=== PATIENT | male | born 1995 | race Caucasian/White ===

== ENCOUNTER 2018-06-13 23:50 | Emergency (ER) | END 2018-06-14 01:59 | disposition home or self-care (01) ==

== ENCOUNTER 2018-09-17 12:30 | Emergency (ER) | payer MEDICAID ==
[~2018-09-17] VITALS: Ht 170.2 cm; Wt 69.9 kg
[2018-09-17 12:44] VITALS: BP 123/80; PULSE 82; RESP 20; Ht 170.2 cm; Wt 69.9 kg
[2018-09-17] MEDS ORDERED: ONDANSETRON (ODT) 4 MG TAB ODT STA (15:42)
[2018-09-17] MEDS ORDERED: LIDOCAINE/MYLANTA 40 ML BTL PO ONE (16:00)
[2018-09-17] MEDS ORDERED: ONDA4TAB14 PO (16:42)
[2018-09-17] MEDS ORDERED: RANI150T35 PO (16:42)
--- NOTE | 2018-09-17 16:52 | ERD ---
ER Documentation Chief Complaint Chief Complaint N/V S/P EATING [id number] HPI 23-year-old male patient with no significant past medical history presents to ED complaining of nausea, vomiting after eating has been going on for the last few months, feels like it has worsened in the last month. States that he feels a bu rning sensation in his chest. She reports that he has had a few episodes of nonbilious nonbloody vomiting after he eats. Reports that he has not followed up with his doctor, as well as a plunket nurse. Reports that sometimes he has upper abdominal pain, reports that that has resolved. Denies any chest pain, shortness of breath, diarrhea, neck stiffness, dyspnea on exertion. ROS All systems reviewed and are negative except as per history of present illness. Medications Home Meds Active Scripts Ondansetron (Ondansetron Odt) 4 Mg Tab.rapdis, 4 MG PO Q6H PRN for NAUSEA AND/OR VOMITING, #10 TAB Prov:NISHANT RENDON PA-C 09/17/18 Ranitidine Hcl* (Zantac*) 150 Mg Tablet, 150 MG PO BID PRN for EPIGASTRIC PAIN, #30 TAB Prov:NISHANT RENDON PA-C 09/17/18 Allergies Allergies: Coded Allergies: No Known Allergy (Unverified , 09/17/18) PMhx/Soc Medical and Surgical Hx: pt denies Medical Hx, pt denies Surgical Hx Hx Alcohol Use: No Hx Substance Use: No Hx Tobacco Use: No Smoking Status: Never smoker FmHx Family History: No diabetes, No coronary disease Physical Exam Vitals Vital Signs Date Temp Pulse Resp B/P (MAP) Pulse Ox O2 O2 Flow FiO2 Time Delivery Rate 09/17/18 98.3 82 20 123/80 98 12:44 (94) Physical Exam Const: Tda-[id number]-[id number], well-nourished. In no acute distress. Head: Atraumatic, normocephalic Eyes: Normal Conjunctiva without injection. No purulent discharge. ENT: Normal external ear, nose. Moist oropharynx without tonsillar exudates. Non-erythematous pharynx. Uvula midline. No drooling. No trismus. Neck: No cervical midline tenderness. Full range of motion. No meningismus. No cervical lymphadenopathy. No JVD. Resp: Clear to auscultation bilaterally. No wheezing, rhonchi, rales, or crackles. No accessory muscle use. No retractions. Cardio: Regular rate and rhythm. No murmurs, rubs or gallops. Abd: Soft, nontender, non distended. Normal bowel sounds. No palpable masses. No rebound tenderness. No guarding. Negative McBurney's point. Negative psoas sign. Negative obturator sign. Skin: No petechiae or rashes Back: No midline tenderness. No CVA tenderness. Ext: No cyanosis, or edema. Neur: Awake and alert. Normal gait. Normal coordination. Psych: Normal Mood and Affect Results 24 hrs Current Medications Medications Dose Sig/Bekah Start Time Status Last (Trade) Ordered Route PRN Stop Time Admin Dose Reason Admin Ondansetron 4 mg ONCE STAT 09/17/18 DC 09/17/18 HCl (Zofran ODT 15:42 15:49 Odt) 09/17/18 15:43 40 ml ONCE ONCE 09/17/18 DC 09/17/18 Miscellaneous PO 16:00 15:49 Medication 09/17/18 16:01 (Gi Cocktail (2)) Procedures/MDM 23-year-old male patient with no significant past medical history presents to ED complaining of nausea, vomiting after eating since 1 month ago. Patient is afebrile and nontoxic-appearing. Patient reports that he currently does not have any abdominal pain. Patient was treated here in the ED with GI cocktail, Zofran and improved his pain. Patient had a successful p.o. challenge. Differentials include gastritis, GERD. Low suspicion for testicular torsion, cholecystitis, choledocholithiasis, cholangitis, pancreatitis, appendicitis, bowel obstruction, ileus, volvulus, nephrolithiasis, pyelonephritis, hepatitis, perforated viscus, diverticulitis, abdominal hernia, acute abdomen, mesenteric ischemia or other emergent conditions. Diagnosis: Nausea, Vomiting, Burning sensation of throat Discharge medications: Zofran, Zantac Follow up with primary care physician in 1-2 days for referral to see plunket nurse for endoscopy.. Instructed patient to return to the ED sooner for any worsening symptoms. Patient's questions were answered. Patient is hemodynamically stable. Patient understood and agreed with discharge plan. Patient discharged stable. Disclaimer: Inadvertent spelling and grammatical errors are likely due to EHR/dictation software use and do not reflect on the overall quality of patient care. Also, please note that the electronic time recorded on this note does not necessarily reflect the actual time of the patient encounter. Departure Diagnosis: Primary Impression: Nausea and vomiting Vomiting type: unspecified Vomiting Intractability: unspecified Qualified Codes: R11.2 - Nausea with vomiting, unspecified Additional Impression: Burning sensation of throat Condition: Stable Patient Instructions: Medications for Acid Reflux, Tips to Control Acid Reflux, What Is Acid Reflux?, Gastritis Vs. Ulcer Referrals: [facility] YOU HAVE RECEIVED A MEDICAL SCREENING EXAM AND THE RESULTS INDICATE THAT YOU DO NOT HAVE A CONDITION THAT REQUIRES URGENT TREATMENT IN THE EMERGENCY DEPARTMENT. FURTHER EVALUATION AND TREATMENT OF YOUR CONDITION CAN WAIT UNTIL YOU ARE SEEN IN YOUR DOCTORS OFFICE WITHIN THE NEXT 1-2 DAYS. IT IS YOUR RESPONSIBILITY TO MAKE AN APPOINTMENT FOR FOLOW-UP CARE. IF YOU HAVE A PRIMARY DOCTOR --you should call your primary doctor and schedule an appointment IF YOU DO NOT HAVE A PRIMARY DOCTOR YOU CAN CALL OUR PHYSICIAN REFERRAL HOTLINE AT IF YOU CAN NOT AFFORD TO SEE A PHYSICIAN YOU CAN CHOSE FROM THE FOLLOWING [facility] [address] [facility]. [facility] [address] [facility]. [facility] [address] [facility] [facility] [address] [facility] [facility] [address] [facility]. [facility]. [address] [facility]. [facility] YOU HAVE RECEIVED A MEDICAL SCREENING EXAM AND THE RESULTS INDICATE THAT YOU DO NOT HAVE A CONDITION THAT REQUIRES URGENT TREATMENT IN THE EMERGENCY DEPARTMENT. FURTHER EVALUATION AND TREATMENT OF YOUR CONDITION CAN WAIT UNTIL YOU ARE SEEN IN YOUR DOCTORS OFFICE WITHIN THE NEXT 1-2 DAYS. IT IS YOUR RESPONSIBILITY TO MAKE AN APPOINTMENT FOR FOLOW-UP CARE. IF YOU HAVE A PRIMARY DOCTOR --you should call your primary doctor and schedule and appointment IF YOU DO NOT HAVE A PRIMARY DOCTOR YOU CAN CALL OUR PHYSICIAN REFERRAL HOTLINE AT . IF YOU CAN NOT AFFORD TO SEE A PHYSICIAN YOU CAN CHOSE FROM THE FOLLOWING [facility] INSTITUTIONS: [facility] [address] [place] [address] [facility] [address] [place] [address] [facility] + [facility] [address] [place] [address] [facility] URGENT CARE/SPECIALTIES Additional Instructions: Call your primary care doctor TOMORROW for an appointment during the next 2-3 days for a referral to see a plunket nurse.See the doctor sooner or return here if your condition worsens before your appointment time. NISHANT RENDON PA-C Sep 17, 2018 16:52
== END 2018-09-17 16:52 | disposition home or self-care (01) ==
LOC: FTE 12:30
DX: R11.2 Nausea with vomiting, unspecified (principal); R09.89 Other specified symptoms and signs involving the circulatory and respiratory systems
CPT/HCPCS: Z7502; Z7610; 99283